=== PATIENT | female | born 1995 | race Caucasian/White ===

== ENCOUNTER 2021-09-29 19:24 | Emergency (ER) | payer OTHER, SELFPAY ==
[2021-09-29 19:41] VITALS: BP 135/62; PULSE 98; RESP 18; TEMP 38.1; O2SAT 98; BMI 20.2
[2021-09-29 20:06] LABS: IDNOW Serial# 08D9AD1C; Influenza A Positive (Negative)
[2021-09-29 20:07] LABS: COVID-19 Test Negative (Negative); Influenza B2 Negative (Negative)
--- NOTE | 2021-09-29 21:01 | ED.GENADULT ---
HPI - General Adult General Chief complaint: General Medical Stated complaint: symptoms of flu, fever, chills, cough Time Seen by Provider: 09/29/21 20:42 Source: patient Mode of arrival: ambulatory Limitations: no limitations History of Present Illness HPI narrative: 25-year-old female here with her mom for his symptoms that are flu-like that started yesterday. Patient has had dry cough, body aches, sore throat, dizziness, vomited once, fever this morning. Patient is not vaccinated for influenza or for COVID. Patient is healthy at baseline Related Data Previous Rx's Medication Instructions Recorded benzonatate 200 mg capsule 200 mg PO TID 5 Days #15 cap 09/29/21 dexamethasone 6 mg tablet 6 mg PO DAILY 3 Days #3 tab 09/29/21 oseltamivir 75 mg capsule 75 mg PO Q12H 5 Days #10 cap 09/29/21 Allergies Allergy/AdvReac Type Severity Reaction Status Date / Time No Known Allergies Allergy Verified 09/29/21 19:41 [No Known Allergies*] Review of Systems Constitutional: Constitutional: Reports body ache(s), Denies chills, Reports fatigue, Reports fever(s), Reports headache(s), Denies malaise and Denies weakness Eyes: Eyes: Denies blurry vision and Denies diplopia ENT: Denies vertigo, Reports dizziness, Denies otalgia, Reports headache(s), Denies mouth pain, Reports nasal congestion, Reports nasal discharge, Denies post nasal drip, Denies sinus pain, Denies sinus pressure, Reports sore throat and Denies throat swelling Cardiovascular: Cardiovascular: Denies chest pain, Denies syncope, Denies leg edema, Denies lightheadedness, Denies Loss of Consciousness, Denies palpitations and Denies dyspnea Respiratory: Respiratory: Denies chest congestion, Reports cough and Denies dyspnea Gastrointestinal: Gastrointestinal: Denies abdominal pain, Denies hematochezia, Denies constipation, Denies diarrhea, Reports nausea and Reports vomiting Musculoskeletal: Musculoskeletal: Reports no additional musculoskeletal complaints Neurologic: Denies confusion, Denies vertigo, Reports dizziness, Denies syncope, Reports headache(s) and Denies weakness Psychiatric: Psychiatric: Denies anxiety, Denies confusion and Denies depression Endocrine: Endocrine: Reports fatigue and Denies palpitations Allergic/Immunologic: Allergic/Immunologic: Denies throat swelling PMFSH Social History Social History Advance Directives: No Advance Directives Information Provided: No Patient : No Physical Exam ED Vital Signs: Vital Signs - 24 hr 09/29/21 19:41 Temperature 100.5 F H Pulse Rate 98 Respiratory Rate 18 Blood Pressure 135/62 Pulse Oximetry 98 BMI result Body Mass Index 20.2 Const General: alert, awake and ill appearing acutely; No confusion Nutritional Appearance: well nourished Orientation/consciousness: patient oriented x3 and No confusion Limitations: no limitations HENMT Head: Yes normal to inspection, Yes normocephalic and Yes atraumatic Ears: hearing grossly normal bilaterally, external ears normal, TM's normal bilaterally and EAC's normal General nose exam: Normal external nose present Face and sinus: Yes normal facial exam and Yes sinuses nontender Mouth: Normal oral and palatal mucosa present, tongue normal and moist mucous membranes Throat: Yes uvula midline, Yes abnormal tonsil, Yes posterior oropharynx abnormal and Yes postnasal drainage Eyes Conjunctivae: conjunctival abnormal diffuse (Injection) Pupils: Equal, round and reactive pupils present EOM: EOMs intact bilaterally Neck Neck: Yes full ROM, Yes no lymphadenopathy and Yes supple Resp Effort & Inspection: normal respiratory effort and able to speak in complete sentences Auscultation: clear to auscultation bilaterally, no crackles, no rales, no rhonchi and no wheezes Cardio Rate: regular rate Rhythm: regular rhythm Heart sounds: S1 normal heart sound present and S2 normal heart sound present GI Inspection: Yes normal to inspection Palpation (GI): Soft to palpation, nontender, no guarding and not rigid Percussion: Yes normal to percussion Auscultation: normal bowel sounds Skin General skin exam: no rashes or lesions noted Neuro General: patient oriented x3 and No confusion Cranial nerves: Yes Equal, round and reactive pupils present Extrem General: Yes normal to inspection and Yes full ROM Psych Appearance: grossly normal Affect: normal affect Attitude: cooperative Thought process: Normal thought process present Course Course Course Narrative: 25-year-old female with flu-like symptoms that started yesterday. Patient test positive for influenza a, negative for COVID. On exam, patient is febrile 100.7, acutely mildly ill appearing, lungs clear to auscultation bilaterally, oropharynx shows mildly swollen tonsils, Patient states it hurts to swallow. Tamiflu, Tessalon Perles, dexamethasone for swollen tonsils [employer] saltwater gargles, Tylenol, push fluids Gave return precautions Medical Decision Making Lab Data Labs: Lab Results 09/29/21 09/29/21 Range/Units 19:45 19:45 COVID-19 (TAMI) Negative (Negative) COVID-19 Clin Com See Note Influenza Type A (TATYANA) Positive A (Negative) Influenza Type B (TATYANA) Negative (Negative) Influenza A & B Note See Note Discharge Plan Discharge Clinical Impression: Influenza A Patient Disposition: Home, Self-Care Instructions: Influenza (ED) Additional Instructions: You have this to. Please rest, drink plenty of fluids, scheduled Tylenol for the next 3 days. I have prescribed Tessalon Perles, Tamiflu, dexamethasone. The dexamethasone will help with your tonsil swelling. You had 1 dose of dexamethasone here, so start those pills tomorrow. You can start the other prescriptions tonight. In addition, please use salt water gargles. You may return to work when you have been fever free for 24 hours without the use of any fever air pumper Return to emergency room if you have any new or concerning symptoms Prescriptions: New oseltamivir 75 mg capsule 75 mg PO Q12H 5 Days Qty: 10 0RF dexamethasone 6 mg tablet 6 mg PO DAILY 3 Days Qty: 3 0RF benzonatate 200 mg capsule 200 mg PO TID 5 Days Qty: 15 0RF
[2021-09-29] MEDS: dexAMETHasone 6 MG TABLET PO (21:31)
== END 2021-09-29 21:37 | disposition home or self-care (01) ==
PROVIDERS: Emergency Provider Internal Medicine
DX: J10.1 Influenza due to other identified influenza virus with other respiratory manifestations (principal); Z20.822 Contact with and (suspected) exposure to COVID-19
CPT/HCPCS: 87502; 87635; 99283; J8540